=== PATIENT | male | born 1990 | race Two or more races ===

== ENCOUNTER 2023-08-31 09:18 | Outpatient (RCR) | payer OTHER, SELFPAY | END 2023-10-05 15:08 | disposition home or self-care (01) | LOC: PT 09:18 | PROVIDERS: PCP Family Medicine; Visit Provider Family Medicine | DX: M25.561 Pain in right knee (principal); M25.562 Pain in left knee; M25.521 Pain in right elbow | CPT/HCPCS: 97110; 97112; 97161 ==

== ENCOUNTER 2023-08-31 09:25 | Outpatient (RCR) | payer OTHER, SELFPAY | END 2023-10-12 15:20 | disposition home or self-care (01) | LOC: OT 09:25 | PROVIDERS: PCP Family Medicine; Visit Provider Family Medicine | DX: M25.561 Pain in right knee (principal); M25.562 Pain in left knee; M25.521 Pain in right elbow | CPT/HCPCS: 97014; 97035; 97110; 97166 ==

== ENCOUNTER 2023-09-01 19:55 | Outpatient (OUT) | payer OTHER, SELFPAY | END 2023-09-01 19:56 | disposition home or self-care (01) | LOC: SLEEP 19:55 | PROVIDERS: PCP Family Medicine; Visit Provider Family Medicine | DX: G47.33 Obstructive sleep apnea (adult) (pediatric) (principal) | CPT/HCPCS: 95810 ==

== ENCOUNTER 2023-09-22 20:47 | Outpatient (OUT) | payer OTHER, SELFPAY | END 2023-09-22 20:48 | disposition home or self-care (01) | LOC: SLEEP 20:47 | PROVIDERS: PCP Family Medicine; Visit Provider Family Medicine | DX: G47.33 Obstructive sleep apnea (adult) (pediatric) (principal) | CPT/HCPCS: 95811 ==